=== PATIENT | female | born 2000 | race Caucasian/White ===

== ENCOUNTER 2018-04-15 23:41 | Emergency (ER) | payer OTHER, MEDICAID ==
[2018-04-16] MEDS: KETOROLAC 30 MG INJ IM (06:07)
== END 2018-04-16 06:30 | disposition home or self-care (01) ==
LOC: FTE 23:41
DX: S39.012A Strain of muscle, fascia and tendon of lower back, initial encounter (principal); X50.0XXA Overexertion from strenuous movement or load, initial encounter; Y92.89 Other specified places as the place of occurrence of the external cause
CPT/HCPCS: 81025; 96372; 99284-25

== ENCOUNTER 2018-05-26 17:33 | Emergency (ER) | payer OTHER ==
[2018-05-26 18:45] LABS: ADD UMIC YES; UR ASCORBIC ACID NEGATIVE (NEGATIVE); UR BILIRUBIN (Dip) NEGATIVE (NEGATIVE); UR BLOOD (Dip) NEGATIVE (NEGATIVE); UR CLARITY CLOUDY (CLEAR); UR COLOR YELLOW (YELLOW); UR GLUCOSE (Dip) NEGATIVE (NEGATIVE); UR KETONES (Dip) NEGATIVE (NEGATIVE); UR LEUKOCYTE ESTERASE (Dip) NEGATIVE Leu/ul (NEGATIVE); UR MUCUS FEW /HPF (NONE SEEN); UR NITRITE (Dip) NEGATIVE (NEGATIVE); UR RBC 2 /HPF (0-5); UR SPECIFIC GRAVITY (Dip) 1.031 (1.003-1.030); UR SQUAMOUS EPITHELIAL CELL MODERATE /HPF (FEW); UR TOTAL PROTEIN (Dip) NEGATIVE (NEGATIVE); UR UROBILINOGEN (Dip) NEGATIVE (NEGATIVE); UR WBC 2 /HPF (0-5)
[2018-05-26] MEDS: ACETAMINOPHEN 500 MG TAB PO (18:46)
[2018-05-26] MEDS: KETOROLAC 60 MG INJ IM (18:47)
[2018-05-26] MEDS: DEXAMETHASONE 10 MG/ML 1 ML INJ IM (19:19)
== END 2018-05-26 19:28 | disposition home or self-care (01) ==
LOC: FTE 17:33
DX: S39.012A Strain of muscle, fascia and tendon of lower back, initial encounter (principal); X50.0XXA Overexertion from strenuous movement or load, initial encounter; Y92.9 Unspecified place or not applicable
CPT/HCPCS: 81001; 81025; 96372; 99284-25